=== PATIENT | female | born 1980 | race Caucasian/White ===

== ENCOUNTER 2017-10-02 01:34 | Emergency (ER) | payer BC, OTHER ==
[2017-10-02 01:50] VITALS: BP 93/65; PULSE 85; TEMP 97.9; BMI 26.4
--- NOTE | 2017-10-02 02:03 | PDOC ---
History of Present Illness - General History Source: Patient, Old Records Exam Limitations: No Limitations - History of Present Illness Initial Comments: 10/02/17 02:32 Patient is a 37 year old female with ai significant past medical history of Recurrent URI, Bronchitis, Graves disease, who presents to the ED with complaints of of shortness of breath that began 3 days ago. Patient reports quitting smoking 3 days ago, followed by chronic shortness of breath and associated coughing. She reports quitting smoking before, stating she never experienced these symptoms prompting her to come into the ED for further evaluation. Patient reports experiencing productive coughing with clear phlegm that she states comes out every 3 minutes. She reports experiencing associated chest tightness. Denies fevers, chills. Denies nausea, vomiting. Denies contact with sick individuals, out of state travelling. Denies any other symptoms. Allergies: NKDA Social history: Current smoker. Current alcohol use. No illicit drugs. Surgical history: None PMD: Dr. Luis Samaniego <Christopher Viveros - Last Filed: 10/02/17 02:32> <Latrice Westfall - Last Filed: 10/02/17 03:17> - General Chief Complaint: Respiratory Stated Complaint: DIFFICULTY BREATHING Time Seen by Provider: 10/02/17 01:46 Past History <Christopher Viveros - Last Filed: 10/02/17 02:32> - Past Medical History COPD: No Other medical history: Graves Disease - Suicide/Smoking/Psychosocial Hx Smoking History: Former smoker Have you smoked in the past 12 months: Yes Number of Cigarettes Smoked Daily: 20 If you are a former smoker, when did you quit?: 09/28/17 Information on smoking cessation initiated: No Hx Alcohol Use: No Drug/Substance Use Hx: No <Latrice Westfall - Last Filed: 10/02/17 03:17> - Past Medical History Allergies/Adverse Reactions: Allergies Allergy/AdvReac Type Severity Reaction Status Date / Time No Known Allergies Allergy Verified 10/02/17 01:46 Home Medications: Ambulatory Orders Methimazole [Tapazole -] 10 mg PO DAILY 10/02/17 Propranolol HCl [Propranolol HCl ER] 50 mg PO DAILY 10/02/17 Review of Systems - Review of Systems Able to Perform ROS?: Yes Comments:: 10/02/17 02:33 GENERAL/CONSTITUTIONAL: No fever or chills. No weakness. HEAD, EYES, EARS, NOSE AND THROAT: No change in vision. No ear pain or discharge. No sore throat. GASTROINTESTINAL: No nausea, vomiting, diarrhea or constipation. GENITOURINARY: No dysuria, frequency, or change in urination. CARDIOVASCULAR: No chest pain or shortness of breath. RESPIRATORY: +shortness of breath. +coughing. +Wheezing. No wheezing, or hemoptysis. MUSCULOSKELETAL: No joint or muscle swelling or pain. No neck or back pain. SKIN: No rash NEUROLOGIC: No headache, vertigo, loss of consciousness, or change in strength/ sensation. ENDOCRINE: No increased thirst. No abnormal weight change. HEMATOLOGIC/LYMPHATIC: No anemia, easy bleeding, or history of blood clots. ALLERGIC/IMMUNOLOGIC: No hives or skin allergy. <Christopher Viveros - Last Filed: 10/02/17 02:32> *Physical Exam - Vital Signs Last Vital Signs Temp Pulse Resp BP Pulse Ox 97.9 F 85 22 93/65 95 10/02/17 01:47 10/02/17 01:47 10/02/17 01:47 10/02/17 01:47 10/02/17 01:47 <Christopher Viveros - Last Filed: 10/02/17 02:32> - Vital Signs Last Vital Signs Temp Pulse Resp BP Pulse Ox 97.9 F 85 22 93/65 95 10/02/17 01:47 10/02/17 01:47 10/02/17 01:47 10/02/17 01:47 10/02/17 01:47 - Physical Exam Comments: GENERAL: Awake, alert, and fully oriented, in no acute distress HEAD: No signs of trauma EYES: PERRLA, EOMI, sclera anicteric, conjunctiva clear ENT: Auricles normal inspection, hearing grossly normal, nares patent, oropharynx clear without exudates. Moist mucosa NECK: Normal ROM, supple, no lymphadenopathy, JVD, or masses LUNGS: Dec air entry B/L with diffuse exp wheezes. Speaking full sentences. Intermittent fits of coughing. HEART: Regular rate and rhythm, normal S1 and S2, no murmurs, rubs or gallops ABDOMEN: Soft, nontender, normoactive bowel sounds. No guarding, no rebound. No masses EXTREMITIES: Normal range of motion, no edema. No clubbing or cyanosis. No cords, erythema, or tenderness NEUROLOGICAL: Cranial nerves II through XII grossly intact. Normal speech, normal gait SKIN: Warm, Dry, normal turgor, no rashes or lesions noted. <Latrice Westfall - Last Filed: 10/02/17 03:17> ED Treatment Course - Medications Given in the ED: ED Medications Discontinued Medications Generic Name Dose Route Start Last Admin Trade Name Em PRN Reason Stop Dose Admin Prednisone 60 mg 10/02/17 02:10 10/02/17 02:30 Deltasone - PO 10/02/17 02:11 60 mg ONCE ONE Administration <Christopher Viveros - Last Filed: 10/02/17 02:32> Medical Decision Making - Medical Decision Making 10/02/17 03:16 Pt reassessed. Wheezing has resolved. Stable for DC home. <Latrice Westfall - Last Filed: 10/02/17 03:17> *DC/Admit/Observation/Transfer - Attestations Scribe Attestion: 10/02/17 02:33 Documentation prepared by Christopher Viveros, acting as medical psychotherapist for Latrice Westfall MD, /DO. <Christopher Viveros - Last Filed: 10/02/17 02:32> - Discharge Dispostion Admit: No <Latrice Westfall - Last Filed: 10/02/17 03:17> Diagnosis at time of Disposition: Reactive airway disease Qualifiers: Asthma severity: unspecified severity Asthma persistence: unspecified Asthma complication type: uncomplicated Qualified Code(s): J45.909 - Unspecified asthma , uncomplicated - Discharge Dispostion Disposition: HOME Condition at time of disposition: Improved - Referrals Referrals: Luis Samaniego MD [Primary Care Provider] - - Patient Instructions - Post Discharge Activity
[2017-10-02] MEDS ORDERED: predniSONE 20 MG TABLET (UD) PO ONE (02:10)
[2017-10-02] MEDS ORDERED: ALBUTEROL SO4 2.5/IPRATROPIUM 0.5 INH SOL 3 ML VIAL.NEB. NEB ONE (02:18)
[2017-10-02] MEDS ORDERED: predniSONE 20 MG TABLET (UD) ONE (02:18)
[2017-10-02] MEDS: ALBUTEROL SO4 2.5/IPRATROPIUM 0.5 INH SOL 3 ML VIAL.NEB. NEB SCH (02:30)
== END 2017-10-02 03:35 | disposition home or self-care (01) ==
LOC: JER 01:34
PROC: 3E0F7GC Introduction of Other Therapeutic Substance into Respiratory Tract, Via Natural or Artificial Opening (ICD-10-PCS; principal; 2017-10-02)
DX: J45.909 Unspecified asthma, uncomplicated (principal); Z87.891 Personal history of nicotine dependence; E05.00 Thyrotoxicosis with diffuse goiter without thyrotoxic crisis or storm
CPT/HCPCS: 99281-25